=== PATIENT | female | born 1985 | race Caucasian/White ===

== ENCOUNTER 2020-02-08 09:26 | Emergency (ER) | payer OTHER, SELFPAY ==
[~2020-02-08] VITALS: Ht 167.6 cm; Wt 90.7 kg
[2020-02-08 09:39] VITALS: BP 116/69
--- NOTE | 2020-02-08 09:40 | NUR ---
Patient in tent for covid precautions
--- NOTE | 2020-02-08 09:47 | NUR ---
34 y/o female from home c/o body aches, chills, change in smell, and cough x 3 days. + covid contact on 02/02. States productive cough with white sputum. Denies SOB/chest pain. RR even and unlabored. 5/10 aching, generalized body pain. VSS medhx: denies
--- NOTE | 2020-02-08 09:55 | NUR ---
Covid swab collected and walked to lab.
[2020-02-08 10:24] VITALS: BP 116/69
--- NOTE | 2020-02-08 10:24 | NUR ---
Patient discharged with v/s stable. Written and verbal after care instructions given and explained. Patient verbalized understanding. Ambulatory with steady gait. All questions addressed prior to discharge. Advised to follow up with PMD.
--- NOTE | 2020-02-09 17:09 | NUR ---
Covid results received from lab. Results = POSITIVE. Hard copy requested from lab and placed in infection controls mailbox.
== END 2020-02-08 10:24 | disposition home or self-care (01) ==
LOC: MED 09:26
DX: U07.1 COVID-19 (principal); R09.81 Nasal congestion; Z90.3 Acquired absence of stomach [part of]
CPT/HCPCS: 99283; U0003